=== PATIENT | male | born 1955 | race Caucasian/White ===

== ENCOUNTER 2025-05-17 18:15 | Emergency (ER) | payer MEDICARE, MEDICAID ==
[2025-05-17] MEDS: Acetaminophen/HYDROcodone 325-5 MG Tab PO ONE (20:39)
[2025-05-17 20:41] LABS: BASOPHILS ABSOLUTE AUTO 0.0 x10^3/uL (0.0-0.2); BASOPHILS PERCENT AUTO 0.1 % (0.2-1.2); EOSINOPHILS ABSOLUTE AUTO 0.2 x10^3/uL (0.0-0.5); EOSINOPHILS PERCENT AUTO 2.0 % (0.0-4.0); IMMATURE GRAN ABSOLUTE AUTO 0.47 x10^3/uL (0.00-0.07); IMMATURE GRAN PERCENT AUTO 4.20 % (0.00-0.43); LYMPHOCYTES ABSOLUTE AUTO 1.8 x10^3/uL (1.0-4.8); LYMPHOCYTES PERCENT AUTO 16.0 % (25.0-50.0); MONOCYTES ABSOLUTE AUTO 1.0 x10^3/uL (0.0-0.8); MONOCYTES PERCENT AUTO 8.6 % (2.0-11.0); NEUTROPHILS ABSOLUTE AUTO 7.7 x10^3/uL (1.8-7.7); NEUTROPHILS PERCENT AUTO 69.1 % (50.0-80.0); PLATELET COUNT,PLT 397 x10^3/uL (130-400); RED BLOOD CELL COUNT 3.07 x10^6/uL (4.5-6.0); WHITE BLOOD CELL COUNT,WBC 11.1 x10^3/uL (4.0-10.0)
[2025-05-17 20:56] LABS: INR 0.9 (0.9-1.1)
[2025-05-17 21:06] LABS: BLOOD UREA NITROGEN,BUN 25.0 mg/dL (7-18); CARBON DIOXIDE,CO2 23.0 mmol/L (21-32); CHLORIDE,CL 105.0 mmol/L (98-107); CREATININE 2.4 mg/dL (0.70-1.30); EST CRCL DRUG DOSING (CG) 30.54 mL/min; ESTIMATED GFR 28.0 mL/min (>=60); GLUCOSE RANDOM 173.0 mg/dL (70-99); POTASSIUM,K 5.4 mmol/L (3.5-5.1); SODIUM,NA 136.0 mmol/L (136-145)
[2025-05-17 21:10] LABS: APPEARANCE,URINE CLEAR (CLEAR); GLUCOSE,URINE 250 mg/dL (NEGATIVE); OCCULT BLOOD,URINE NEGATIVE (NEGATIVE)
[2025-05-17 21:17] LABS: EPITHELIAL CELLS,URINE RARE
== END 2025-05-17 22:15 ==
LOC: VM.ED 18:15
DX: Z87.81 Personal history of (healed) traumatic fracture (principal); R79.89 Other specified abnormal findings of blood chemistry; E11.9 Type 2 diabetes mellitus without complications; Z88.8 Allergy status to other drugs, medicaments and biological substances; Z66 Do not resuscitate
CPT/HCPCS: 36415; 80048; 81001; 83735; 84484; 85025; 85610; 99284; 99285; A9270-GY